=== PATIENT | female | born 1990 | race American Indian/Alaskan Native ===

== ENCOUNTER 2018-08-20 10:18 | Inpatient (IN) | payer BC, MEDICARE ==
[2018-08-20 10:25] VITALS: O2SAT 99
[2018-08-20 10:26] VITALS: BMI 26.2
[2018-08-20] MEDS ORDERED: Sodium Chloride 0.9% 1,000 ML IV STA (10:46)
--- NOTE | 2018-08-20 10:58 | ED PDOC ---
HPI: General Adult Time Seen by Provider: 08/20/18 10:34 Chief Complaint (Nursing): Weakness/Neurological Deficit Chief Complaint (Provider): Weakness and hearing voices History Per: Patient History/Exam Limitations: no limitations Onset/Duration Of Symptoms: Days Additional Complaint(s): Pt. with weakness and numbness to entire body. Feels light-headed. Started when she woke up at 730am. Pt. also hearing voices and seeing things. Not suicidal or homicidal. No drugs, etoh. Taking her schizoaffective meds. Pt. has no abd pain, nausea, vomit, chest pain, dyspnea, dysuria. No syncope episode. Past Medical History Reviewed: Nursing Documentation, Vital Signs Vital Signs: Last Vital Signs Temp 98.4 F 08/20/18 10:24 Pulse 91 H 08/20/18 10:24 Resp 17 08/20/18 10:24 BP 124/83 08/20/18 10:24 Pulse Ox 99 08/20/18 10:24 Primary Care Provider: FAMILY PROVIDER,NO - Medical History PMH: Bipolar Disorder, Schizophrenia - Family History Family History: States: Unknown Family Hx - Immunization History Hx Tetanus Toxoid Vaccination: No Hx Influenza Vaccination: No Hx Pneumococcal Vaccination: No - Allergies Allergies/Adverse Reactions: Allergies Allergy/AdvReac Type Severity Reaction Status Date / Time Unobtainable Allergy Verified 08/20/18 10:35 Review of Systems ROS Statement: Except As Marked, All Systems Reviewed And Found Negative Constitutional: Positive for: Weakness Neurological: Positive for: Weakness, Numbness, Dizziness Psych: Positive for: Psychosis Physical Exam - Reviewed Nursing Documentation Reviewed: Yes Vital Signs Reviewed: Yes - Physical Exam Appears: Positive for: Uncomfortable Head Exam: Positive for: ATRAUMATIC, NORMAL INSPECTION, NORMOCEPHALIC Skin: Positive for: Normal Color, Warm, DRY Eye Exam: Positive for: EOMI, Normal appearance, PERRL ENT: Positive for: Normal ENT Inspection Neck: Positive for: Normal, Painless ROM Cardiovascular/Chest: Positive for: Regular Rate, Rhythm Respiratory: Positive for: CNT, Normal Breath Sounds Gastrointestinal/Abdominal: Positive for: Normal Exam, Soft. Negative for: Tenderness Back: Positive for: Normal Inspection. Negative for: L CVA Tenderness, R CVA Tenderness Extremity: Positive for: Normal ROM. Negative for: Tenderness, Pedal Edema Neurological/Psych: Positive for: Awake, Alert, Normal Tone, Symmetric/Intact St rength, panelboard tank pumper II-XII. Negative for: Motor/Sensory Deficits, Facial Droop - Laboratory Results Result Diagrams: 08/20/18 12:37 08/20/18 12:37 Interpretation Of Abn Labs: 12.3 wbc, glucose 61 - ECG ECG: Positive for: Interpreted By Me, Viewed By Me ECG Rhythm: Positive for: Normal QRS, Normal ST Segment, Sinus Rhythm O2 Sat by Pulse Oximetry: 99 Pulse Ox Interpretation: Normal - CT Scan/US ct Other Rad Studies (CT/US): Read By Radiologist Other Rad Interpretation: no acute - Progress ED Course And Treament: 1045: Pt. acutely agitated and seeing things. Threat to self and staff. Will give ativan to help. 1-1. 1345: Calm. Tolerating po so glucose should be higher. AAOx3. No dizziness, weakness, numbness. Crisis saw pt. Will admit. Medically stable for psych. - Critical Care Total Time (In Min): 30 Documented Critical Care: Time excludes all time spent performint seperately billable procedures Disposition - Clinical Impression Clinical Impression: Generalized muscle weakness, Schizoaffective disorder - Patient ED Disposition Is Patient to be Admitted: Yes Counseled Patient/Family Regarding: Studies Performed, Diagnosis - Disposition Disposition Time: 10:30 Condition: FAIR - Pt Status Changed To: Hospital Disposition Of: Inpatient - Admit Certification Admit to Inpatient:: After my assessment, the patient will require hospitali zation for at least two midnights. This is because of the severity of symptoms shown, intensity of services needed, and/or the medical risk in this patient being treated as an outpatient. - POA Present On Arrival: None
--- NOTE | 2018-08-20 12:09 | CT ---
Date of service: 08/20/2018 PROCEDURE: CT HEAD WITHOUT CONTRAST. HISTORY: dizziness and weakness COMPARISON: None available. TECHNIQUE: Axial computed tomography images were obtained through the head/brain without intravenous contrast. Radiation dose: Total exam DLP = 992.84 mGy-cm. This CT exam was performed using one or more of the following dose reduction techniques: Automated exposure control, adjustment of the mA and/or kV according to patient size, and/or use of iterative reconstruction technique. FINDINGS: HEMORRHAGE: No intracranial hemorrhage. BRAIN: No mass effect or edema. No atrophy or chronic microvascular ischemic changes. VENTRICLES: Unremarkable. No hydrocephalus. CALVARIUM: Unremarkable. PARANASAL SINUSES: Mucosal thickening noted in the ethmoid left maxillary and left sphenoid sinuses. MASTOID AIR CELLS: Unremarkable as visualized. No inflammatory changes. OTHER FINDINGS: None. IMPRESSION: No evidence of acute intracranial hemorrhage mass effect or midline shift. Mucosal thickening noted in the paranasal sinuses.
[2018-08-20 12:41] LABS: BASO # 0.1 K/uL (0.0-0.2); BASO % 0.5 % (0.0-2.0); EOS # 0.1 K/uL (0.0-0.7); EOS % 0.5 % (0.0-4.0); LYMPH # 4.2 K/uL (1.0-4.3); LYMPH % 34.1 % (20.0-40.0); MEAN CELL VOLUME 66.9 fl (81.0-99.0); MEAN CORPUSCULAR HGB CONC 31.4 g/dL (33.0-37.0); MEAN PLATELET VOLUME 8.2 fl (7.2-11.7); MONO % 7.9 % (0.0-10.0); NRBC % 0.1 % (0.0-0.0); RBC 5.73 Mil/uL (3.80-5.20); RED CELL DISTRIBUTION WIDTH 16.8 % (11.5-14.5); WHITE BLOOD COUNT 12.3 K/uL (4.8-10.8)
[2018-08-20 12:55] LABS: ALB/GLOB RATIO 1.5 (1.0-2.1); ALBUMIN 4.7 g/dL (3.5-5.0); ALT/SGPT 20 U/L (9-52); AST/SGOT 42 U/L (14-36); BLOOD UREA NITROGEN 13 mg/dl (7-17); CALCIUM 9.5 mg/dL (8.4-10.2); GFR NON-AFRICAN AMERICAN > 60
[2018-08-20 14:23] LABS: BARBITURATES, UR NEGATIVE (NEGATIVE); BENZODIAZEPINES, UR NEGATIVE (NEGATIVE); OPIATES, UR NEGATIVE (NEGATIVE); PHENCYCLIDINE, UR NEGATIVE (NEGATIVE)
--- NOTE | 2018-08-20 16:37 | CARD ---
APPROVED REPORT Date of service: 08/20/2018 EKG Measurement Heart [id number] <Conclusion> Sinus tachycardia Otherwise normal ECG
[2018-08-20] MEDS ORDERED: DiphenhydrAMINE 50 mg/ml Inj IM PRN (19:10)
[2018-08-20] MEDS ORDERED: Magnesium Hydroxide Susp 30 ml UD PO PRN (19:10)
[2018-08-20] MEDS ORDERED: Alum-Mag Hydrox-Simethicone Susp (30 mL) PO PRN (19:10)
[2018-08-21 07:47] LABS: BASO # 0.1 K/uL (0.0-0.2); BASO % 0.9 % (0.0-2.0); EOS # 0.1 K/uL (0.0-0.7); EOS % 0.7 % (0.0-4.0); HEMOGLOBIN 12.3 g/dL (12.0-16.0); LYMPH # 2.1 K/uL (1.0-4.3); LYMPH % 24.1 % (20.0-40.0); MEAN CELL VOLUME 65.8 fl (81.0-99.0); MEAN CORPUSCULAR HEMOGLOBIN 21.2 pg (27.0-31.0); MEAN CORPUSCULAR HGB CONC 32.2 g/dL (33.0-37.0); MEAN PLATELET VOLUME 7.8 fl (7.2-11.7); MONO # 0.6 K/uL (0.0-0.8); MONO % 6.6 % (0.0-10.0); NEUT # 5.9 K/uL (1.8-7.0); NEUT % 67.7 % (50.0-75.0); NRBC % 0.1 % (0.0-0.0); RBC 5.79 Mil/uL (3.80-5.20); RED CELL DISTRIBUTION WIDTH 17.1 % (11.5-14.5); WHITE BLOOD COUNT 8.7 K/uL (4.8-10.8)
[2018-08-21 08:08] LABS: HDL CHOLESTEROL 67 MG/DL (30-70)
[2018-08-21 08:18] LABS: ALB/GLOB RATIO 1.4 (1.0-2.1); ALBUMIN 4.6 g/dL (3.5-5.0); ALT/SGPT 26 U/L (9-52); AST/SGOT 31 U/L (14-36); BLOOD UREA NITROGEN 8 mg/dl (7-17); CALCIUM 9.3 mg/dL (8.4-10.2); GFR NON-AFRICAN AMERICAN > 60
[2018-08-21 08:19] LABS: LDL CHOLESTEROL 112 mg/dL (0-129)
--- NOTE | 2018-08-21 15:31 | PCM.PSYCH ---
Initial Psychiatric Evaluation - Initial Psychiatric Evaluation Patient's Reaction to Hospitalization: signed in voluntarily History of Present Illness and Precipitating Events: feeling overwhelmed was not sleeping got lost insurance coverage has not received noe esquviel requests to take po abilify Current Medications: Active Medications Generic Name Dose Route Start Last Admin Trade Name Freq PRN Reason Stop Dose Admin Acetaminophen 650 mg 08/20/18 19:10 08/21/18 09:21 Tylenol 325mg Tab PO 650 mg Q4 PRN Administration Pain, moderate (4-7) Al Hydrox/Mg Hydrox/Simethicone 30 ml 08/20/18 19:10 Maalox Plus 30 Ml PO Q4 PRN Dyspepsia Diphenhydramine HCl 50 mg 08/20/18 19:10 Benadryl IM Q6 PRN Extrapyramidal S/S Unable PO Diphenhydramine HCl 50 mg 08/20/18 19:12 Benadryl PO HS PRN Insomnia Diphenhydramine HCl 50 mg 08/20/18 19:14 Benadryl PO Q6 PRN Other EPS Haloperidol 5 mg 08/20/18 19:10 Haldol PO Q4 PRN Agitation Haloperidol Lactate 5 mg 08/20/18 19:10 Haldol IM Q4 PRN Agitation, Unable to Take PO Hydroxyzine HCl 10 mg 08/21/18 15:27 Atarax PO Q8 PRN Anxiety Lorazepam 2 mg 08/21/18 02:32 Ativan IM Q6H PRN Anxiety/Agitation,Unable PO Lorazepam 1 mg 08/21/18 02:32 08/21/18 02:39 Ativan PO 1 mg Q6H PRN Administration Anxiety/Agitation Magnesium Hydroxide 30 ml 08/20/18 19:10 Milk Of Magnesia PO HS PRN Constipation Past Psychiatric History - Past Psychiatric History Pertinent Medical Hx (Current Medical&Sleep Prob, Allergies): Allergies Allergy/AdvReac Type Severity Reaction Status Date / Time lactose Allergy DIARRHEA Verified 08/21/18 12:46 Aripiprazole Extended Release [Abilify Maintena] 1 ml IM Q28D 08/20/18 Benztropine [Cogentin] 2 mg PO HS 08/20/18 Buspirone HCl 45 mg PO HS 08/20/18 Fluticasone Nasal [Flonase] 2 spray AZRA DAILY PRN 08/20/18 OXcarbazepine [Trileptal] 300 mg PO Q12 08/20/18 Ramelteon [Rozerem] 8 mg PO HS 08/20/18 buPROPion [Wellbutrin] 100 mg PO HS 08/20/18 hydrOXYzine HCl [Atarax] 10 mg PO Q8 PRN 08/20/18 Mental Status Examination - Affect Affect: Broad - Motor Activity Motor Activity: Calm, Psychomotor Retardation - Reliability in Providing Information Reliability in Providing Information: Fair - Speech Speech: Organized - Formal Thought Process Formal Thought Process: Paranoia - Obsessions/Compulsions Obsessions: No Compulsions: No - Cognitive Functions Orientation: Person, Place, Situation, Time Sensorium: Alert Attention/Concentration: Attentive Memory: Recent intact, as evidence by: Other - Risk Risk: Diminished functioning - Strength & Assets Inventory Strength & Assets Inventory: Cooperative (non adherence) DSM 5 DX - DSM 5 DSM 5 Diagnosis: hs schizoaffective disorder bipolar type - Recommended/Plan of Treatment Treatment Recommendations and Plan of Treatment: inpt admission per attending vital signs and clinical assessment per protocol and per clinical status prns per unit protocol hospitalist consult pt request previous response to mirtazepine 7.5mg po hs for sleep pt requests hydroxyzine 10mg po prn for anxiety defers desire for long acting antipsychotic pt requests abilify po 10mg po daily discharge planning in progress Projected ELOS: 5-7 days or per clinical status Prognosis: guarded Discharge Plan and Discharge Criteria: safety - Smoking Cessation Smoking Cessation Initiated: No Reason for not providing: pt defers
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
[2018-08-22 09:47] VITALS: RESP 18
--- NOTE | 2018-08-22 14:32 | PCM.PYCHPN ---
Psychiatric Progress Note - Psychiatric Progress Note Patient seen today, length of contact: chart reviewed case discussed with team pt seen Patient Chief Complaint: flucuation in mood, decreased sleep had missed im maintenna 2nd change in insurance, received po ability without notable side effects, sleep improved with mirtazepine per pt request, requests to start trileptal has taken before with reported benefit without notable side effects. pt seen in unit, staff report pt adherent with treatment, Problems Identified/Issues Discussed: alteration in mood alteration in coping alteration in sleep Medical Problems: per chart Diagnostic Results: per psychiatry, per medicine, per nursing, per social work, per recreational therapy DSM 5 Symptoms Update: some improvement sleep mood Medication Change: Yes (trileptal 150mg po bid) Medical Record Reviewed: Yes Consults ordered or reviewed: pt being followed by medical team t Mental Status Examination - Cognitive Function Orientation: Person, Place, Situation, Time Attention: Poor Decription of patient's judgement and insights: some impairment concentration, mood, attention and insight and judgment - Affect Affect: Broad - Speech Speech: Soft - Formal Thought Process Formal Thought Process: Paranoia - Homicidal Ideation Homicidal Ideation: No Goal/Treatment Plan - Goal/Treatment Plan Progress Toward Problem(s) and Goals/Treatment Plan: inpt mile[place] vital signs and clinical assessment per protocol and per clinical status prns per unit protocol start trileptal 150mg po bid pt reports improved anxiety with taking buspar start buspar 5mg po tid defers desire for long acting antipsychotic discharge planning in progress Estimated Date of D/C: 08/26/18 If changed, why: pt defers
--- NOTE | 2018-08-23 16:55 | PCM.PYCHPN ---
Psychiatric Progress Note - Psychiatric Progress Note Patient seen today, length of contact: chart reviewed case discussed with team pt seen Patient Chief Complaint: I am hearing less voices Problems Identified/Issues Discussed: pt evaluated with treatment team, cooperative with good insight into illness, reported partial clearing of the auditory hallucinations, currently experiencing non command hallucinations, denied active thoughts of self harm , discussed with pt starting depot abilify for better compliance, DSM 5 Symptoms Update: schizoaffective disorder bipolar type Medication Change: Yes (trileptal 150mg po bid) Medical Record Reviewed: Yes Mental Status Examination - Cognitive Function Orientation: Person, Place, Situation, Time Attention: Poor - Mood Mood: Anxious - Affect Affect: Broad, Constricted - Speech Speech: Appropriate, Soft - Formal Thought Process Formal Thought Process: Hallucinations, Paranoia - Suicidal Ideation Suicidal Ideation: No - Homicidal Ideation Homicidal Ideation: No Goal/Treatment Plan - Goal/Treatment Plan Need for Continued Stay: Remain at risks for inpatient hospitalization, Discharge may exacerbated symptoms Progress Toward Problem(s) and Goals/Treatment Plan: abilify 10mg daily/ cogentin 1mg daily buspar 5mg bid trileptal 150mg bid remeron 7.5mg qhs cbt group and supportive therapy Estimated Date of D/C: 08/26/18
[2018-08-24] MEDS: guaiFENesin DM 100 mg-10 mg/5 ml UD PO PRN (09:11)
--- NOTE | 2018-08-24 14:08 | PCM.PYCHPN ---
Psychiatric Progress Note - Psychiatric Progress Note Patient seen today, length of contact: chart reviewed case discussed with team pt seen Patient Chief Complaint: I have been feeling anxious Problems Identified/Issues Discussed: pt evaluated, presenting with anxious mood and affect, discussed increasing dose of buspar and starting vistaril prn, pt reported clearing off of the hallucinations, improved sleep , no changes in appetite , denied any current suicidal or homiidal ideation DSM 5 Symptoms Update: schizoaffective disorder bipolar Medication Change: Yes (increase buspar ) Medical Record Reviewed: Yes Mental Status Examination - Cognitive Function Orientation: Person, Place, Situation, Time Attention: WNL Concentration: WNL Association: [facility] Fund of Knowledge: [facility] Decription of patient's judgement and insights: good insight and judgment - Mood Mood: Anxious - Affect Affect: Broad, Constricted - Speech Speech: Appropriate, Soft - Formal Thought Process Formal Thought Process: Hallucinations, Paranoia - Suicidal Ideation Suicidal Ideation: No - Homicidal Ideation Homicidal Ideation: No Goal/Treatment Plan - Goal/Treatment Plan Need for Continued Stay: Remain at risks for inpatient hospitalization, Discharge may exacerbated symptoms Progress Toward Problem(s) and Goals/Treatment Plan: abilify 10mg daily/ cogentin 1mg daily increase buspar 10mg bid trileptal 150mg bid remeron 7.5mg qhs cbt group and supportive therapy Estimated Date of D/C: 08/26/18
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
[2018-08-25] MEDS: guaiFENesin DM 100 mg-10 mg/5 ml UD PO PRN (00:28)
--- NOTE | 2018-08-25 16:36 | PCM.PYCHPN ---
Psychiatric Progress Note - Psychiatric Progress Note Patient seen today, length of contact: chart reviewed case discussed with team pt seen Patient Chief Complaint: I am less anxious with increasing buspar Problems Identified/Issues Discussed: pt evaluated, presenting with brighter affect, reported mood less anxious with increasing buspar , pt observed attending groups, interacting with other patients, reported clearing off of the visual and auditory halluciantions , no reported changes in sleep or appetite , tolerating medications well DSM 5 Symptoms Update: schizoaffective disorder bipolar Medication Change: No Medical Record Reviewed: Yes Mental Status Examination - Cognitive Function Orientation: Person, Place, Situation, Time Attention: WNL Concentration: WNL Association: [facility] Fund of Knowledge: [facility] Decription of patient's judgement and insights: good insight and judgment - Mood Mood: Anxious - Affect Affect: Broad, Constricted - Speech Speech: Appropriate, Soft - Formal Thought Process Formal Thought Process: Hallucinations, Paranoia - Suicidal Ideation Suicidal Ideation: No - Homicidal Ideation Homicidal Ideation: No Goal/Treatment Plan - Goal/Treatment Plan Need for Continued Stay: Remain at risks for inpatient hospitalization, Discharge may exacerbated symptoms Progress Toward Problem(s) and Goals/Treatment Plan: abilify 10mg daily/ cogentin 1mg daily buspar 10mg tid trileptal 150mg bid remeron 7.5mg qhs cbt group and supportive therapy Estimated Date of D/C: 08/26/18
[2018-08-26 09:08] VITALS: BP 100/63; PULSE 73; TEMP 98.7
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
== END 2018-08-26 11:57 | disposition home or self-care (01) | DRG 885 ==
LOC: H.ER 10:18 → H.ERHOLD 13:48 → H.PSYCH 17:32
PROVIDERS: ADMIT Psychiatry & Neurology Psychiatry; ATTEND Psychiatry & Neurology Psychiatry
PROC: GZHZZZZ Group Psychotherapy (ICD-10-PCS; principal; 2018-08-20)
PROC: GZ58ZZZ Individual Psychotherapy, Cognitive-Behavioral (ICD-10-PCS; 2018-08-20)
PROC: GZ56ZZZ Individual Psychotherapy, Supportive (ICD-10-PCS; 2018-08-20)
DX: F25.0 Schizoaffective disorder, bipolar type (principal); Z91.011 Allergy to milk products; B35.9 Dermatophytosis, unspecified